=== PATIENT | male | born 1995 | race Caucasian/White ===

== ENCOUNTER 2021-12-11 06:54 | Emergency (ER) | payer OTHER ==
[~2021-12-11] VITALS: Ht 182.9 cm; Wt 123.0 kg
[2021-12-11 07:13] VITALS: BP 140/87
[2021-12-11] MEDS ORDERED: DOXY100T2 MT (07:59)
[2021-12-11] MEDS ORDERED: CEFTRIAXONE SODIUM 1 G/VIAL IM ONE (08:00)
[2021-12-14 04:09] LABS: NEISSERIA GONORRHOEAE NAA Negative (Negative)
== END 2021-12-11 08:21 | disposition home or self-care (01) ==
LOC: ER 06:54
DX: A64 Unspecified sexually transmitted disease (principal); Z90.49 Acquired absence of other specified parts of digestive tract
CPT/HCPCS: 87491; 87591; 99283

== ENCOUNTER 2023-01-03 20:31 | Emergency (ER) | payer OTHER ==
[~2023-01-03] VITALS: Ht 182.9 cm; Wt 100.0 kg
[~2023-01-03 20:31] MED LIST: DOXY100T2 MT
[2023-01-03] MEDS ORDERED: ZIPRASIDONE MESYLATE 20MG/VIAL IM ONE (21:45)
[2023-01-03] MEDS ORDERED: LORAZEPAM 1MG TABLET PO ONE (21:45)
[2023-01-03 23:23] LABS: BASOPHILS % 0.7 % (0.0-2.0); EOSINOPHILS % 2.5 % (0.0-5.0); HEMATOCRIT. 40.4 % (42.0-52.0); HEMOGLOBIN. 13.7 g/dL (14.0-18.0); LYMPHOCYTES % 14.5 % (20.0-50.0); MEAN CORPUSCULAR HEMOGLOBIN 30.4 pg (28.0-32.0); MEAN CORPUSCULAR VOLUME 89.6 fL (80.0-94.0); MEAN PLATELET VOLUME 9.3 fl (7.4-10.4); MONOCYTES % 7.8 % (2.0-8.0); NEUTROPHILS % 74.5 % (40.0-76.0); PLATELET 269 x1000/uL (130-400); RED BLOOD CELL COUNT 4.51 mill/uL (4.7-6.1); RED CELL DISTRIBUTION WIDTH 13.8 % (11.6-14.6)
[2023-01-03 23:32] LABS: CHLORIDE 110 mEq/L (98-107)
[2023-01-03 23:36] LABS: ETHANOL BLOOD < 10 mg/dL
[2023-01-04 08:11] VITALS: BP 120/68
== END 2023-01-04 08:32 | disposition home or self-care (01) ==
LOC: ER 20:31
DX: F23 Brief psychotic disorder (principal); F15.10 Other stimulant abuse, uncomplicated; F12.10 Cannabis abuse, uncomplicated; Z90.49 Acquired absence of other specified parts of digestive tract
CPT/HCPCS: 36415; 80048; 80320; 85025; 96372; 99285; J3486; G0480